=== PATIENT | male | born 1975 | race Caucasian/White ===

== ENCOUNTER → 2023-08-18 | Day surgery (SDC) | payer OTHER ==
[2023-08-10 14:07] LABS: Absolute Eosinophils 0.1 K/uL (0-0.5); Absolute Lymphocytes (CBC) 1.1 K/uL (0.7-4.9); Absolute Monocytes 0.6 K/uL (0.1-1.3); Absolute Neutrophil 3.7 K/uL (1.8-8.0); Basophils % 0.5 % (0-1.3); Eosinophils % 1.6 % (0-4.4); Hematocrit 44.1 % (39.6-49.0); Hemoglobin 14.8 g/dL (13.6-17.9); Lymphocytes % 19.4 % (15.3-44.8); MCH 30.6 pg (27.0-35.0); MCHC 33.5 g/dL (32.0-36.0); MCV 91.5 fL (80-100); MPV 6.2 fL (7.6-11.3); Monocytes % 11.8 % (3.3-12.3); Neutrophils % 66.7 % (41.7-73.7); Nucleated Red Blood Cells % 0.1 % (0-0); Platelets 240 thou/uL (152-406); RBC Red Blood Cell Count 4.82 M/uL (4.33-5.43); Red Cell Distribution Width 13.6 % (12.1-15.2)
[2023-08-10 14:15] LABS: PTT, Activated Partial Thromb 35.8 SECONDS (24.3-36.9); Protime INR 1.09
[2023-08-10 14:24] LABS: Anion Gap 8.8 mEq/L (5.0-15.0); Potassium 3.8 mEq/L (3.5-5.1)
--- NOTE | 2023-08-10 17:24 | RAD REPORT ---
EXAM DESCRIPTION: [facility] Pa And Lat (2 Views)08/10/2023 2:03 pm CLINICAL HISTORY: Pre op pending hernia repair. Hypertension COMPARISON: Chest Pa And Lat (2 Views) dated 04/10/2017; Chest Pa And Lat (2 Views) dated 02/01/2017; Chest Single View dated 08/03/2016 TECHNIQUE: PA and lateral views of the chest. FINDINGS: The lungs are clear apart from streaky right basilar atelectasis. No pneumothorax or effu natanael. The cardiomediastinal contours are unremarkable. IMPRESSION: No acute cardiopulmonary process.
--- NOTE | 2023-08-11 15:44 | EKG ---
Test Date: 2023-08-10 Test Time: 13:54:26 Electrical Laboratory Technician: LIZ MEASUREMENT RESULTS: Intervals: Rate: 68 HI: 156 QRSD: 102 QT: 394 QTc: 418 [place]: P: 19 HI: 156 QRS: 76 T: 51 INTERPRETIVE STATEMENTS: Normal sinus rhythm Normal ECG Compared to ECG 08/03/2016 19:08:30 No significant changes Electronically Signed On 08-11-23 15:41:23 CDT by Roc Staley
[~2023-08-18] MED LIST: FENTANYL CITR 100 MCG/2 ML ONE; LIDOCAINE 2% MPF 5 ML VIAL ONE; MIDAZOLAM HCL 2 MG/2 ML INJ ONE; Mastisol Adhesive Liq ONE; ROCURONIUM 50 MG/5 ML VIAL IV ONE; SUGAMMADEX SODIUM 200 MG/2 ML VIAL IV ONE; propofoL 200 MG/20 ML VIAL IV ONE
[2023-08-18] MEDS: NA CHLORIDE 0.9% 1,000 ML ONE (08:00)
[2023-08-18] MEDS: CEFAZOLIN SODIUM 2 GM/VIAL ONE (09:15)
[2023-08-18] MEDS: BUPIVACAINE 0.5% PF 10 ML VIAL ONE (09:21)
--- NOTE | 2023-08-18 10:18 | P.OP ---
Date of Service: 08/18/23 Preop diagnosis: Incarcerated umbilical hernia Postop diagnosis: Same Procedure performed: Repair of incarcerated umbilical hernia Surgeon: Keron Schwartz MD Insulation And Flooring Assembler: Michelle BROWNING Estimated blood loss: Minimal Specimen: Hernia sac and contents Findings: As above Anesthesia: General Complications: None Drains: None Fluids and blood products: Nonapplicable Disposition: Recovery room Operative note: Patient brought to the OR and placed in the supine position. General anesthesia began. Patient prepped and draped in usual sterile fashion. Marcaine 0.5% infiltrated locally. 15 blade used to make a 1 cm left upper quadrant incision. Subcutaneous tissue divided and bleeding controlled cautery. Fascia identified and divided. #1 Vicryl stay suture placed. Peritoneal cavity entered with sharp and blunt dissection. 12 mm trocar placed into the peritoneal cavity under direct vision. Pneumoperitoneum established. A 5 mm trocar placed in the left lower quadrant under direct vision. Laparoscopy revealed incarcerated umbilical hernia. Omentum present inside the hernia. Omentum removed from the hernia contents. A 3 cm supraumbilical midline incision made. Subcu tissue divided. Hernia sac and contents identified. Hernia sac excised at the fascial edges. In hernia sac sent to pathology. #1 PDS used to close the hernia defect which was approximately 3 cm in diameter. Pneumoperitoneum reestablished. A 10 x 15 cm oval Bard balloon mesh placed in the peritoneal cavity in the standard fashion and deployed. Sorber tack used to secure the mesh to the peritoneal surface under direct vision. The balloon component removed in 1 piece. Complete coverage of the hernia sac with at least 3 cm border on every side accomplished. No evidence of bowel injury or bleeding noted. All trocars removed under direct vision. Stay sutures tied to each other to reapproximate the fascial defect. Subcutaneous wounds irrigated and bleeding controlled cautery. 3-0 chromic used to approximate subcutaneous tissue and close skin. Sterile dressing applied. Patient awakened and taken to recovery room in good general condition. CC:
[2023-08-18] MEDS: HYDROMORPHONE HCL 1 MG/ML INJ ONE ×2 (10:22→10:52)
[2023-08-18 11:11] VITALS: O2SAT 96
[2023-08-18] MEDS: HYDROCODONE/APAP 7.5/325 MG TAB ONE (11:36)
[2023-08-18 12:55] VITALS: TEMP 97.1
[2023-08-18 13:12] VITALS: BP 135/72
== END | disposition home or self-care (01) ==
LOC: OR 07:14
PROVIDERS: ATTEND Surgery
PROC: 0WUF4JZ Supplement Abdominal Wall with Synthetic Substitute, Percutaneous Endoscopic Approach (ICD-10-PCS; principal; 2023-08-18 08:30)
DX: K42.0 Umbilical hernia with obstruction, without gangrene (principal)
CPT/HCPCS: 93005; 85025; 80048; 36415; 85610; 82947 ×2; 88302; 85730; 71046; 49594; J2704 ×2; J2001; J2250; J3010; J1170 ×2; J7030

== ENCOUNTER 2024-03-25 17:10 | Emergency (ER) | payer OTHER ==
--- NOTE | 2024-03-25 17:51 | RAD REPORT ---
Procedure: Chest Pa And Lat (2 Views) HISTORY: Chest pain COMPARISON: July 2023 FINDINGS: 2 cm nodular opacity overlies the right lung base. The left lung appears clear of acute infiltrate. No significant pleural effusion noted. The heart is normal size. IMPRESSION: 2 cm nodular opacity overlies the right lung base. This may represent a pulmonary nodule. CT chest is recommended
[2024-03-25 19:53] LABS: Absolute Eosinophils 0.1 K/uL (0-0.5); Absolute Monocytes 0.5 K/uL (0.1-1.3); Absolute Neutrophil 3.6 K/uL (1.8-8.0); Basophils % 0.4 % (0-1.3); Eosinophils % 1.3 % (0-4.4); Hematocrit 44.1 % (39.6-49.0); Hemoglobin 14.8 g/dL (13.6-17.9); Lymphocytes % 18.6 % (15.3-44.8); MCH 31.8 pg (27.0-35.0); MCHC 33.6 g/dL (32.0-36.0); MCV 94.6 fL (80-100); Neutrophils % 69.7 % (41.7-73.7); Nucleated Red Blood Cells % 0.1 % (0-0); Platelets 225 thou/uL (152-406); RBC Red Blood Cell Count 4.66 M/uL (4.33-5.43); Red Cell Distribution Width 13.2 % (12.1-15.2)
[2024-03-25 20:17] LABS: Albumin 4.2 g/dL (3.4-5.0); Albumin/Globulin Ratio 1.2 (1.1-1.8); Anion Gap 8.1 mEq/L (5.0-15.0); Bilirubin Total 1.1 mg/dL (0.2-1.0); Globulin 3.6 g/dL (2.3-3.5); Potassium 4.1 mEq/L (3.5-5.1); Protein, Total 7.8 g/dL (6.4-8.2); Thyroid Stimulating Hormone 11.5 uIU/mL (0.358-3.740); Troponin High Sensitivity 4.5 pg/mL (<58.9)
--- NOTE | 2024-03-25 20:37 | ER ---
Nurse's Notes [facility] Name: Alex Zelaya Age: 48 yrs Sex: Male : 1975 Arrival Date: 03/25/2024 Time: 17:10 Bed 8 Private MD: Diagnosis: Hypothyroidism, unspecified Presentation: 03/25 17:14 Chief complaint: Intermittent palpitations and SOB x 2 weeks, chest tightness and jaw hb pain today. Coronavirus screen: At this time, the client does not indicate any symptoms associated with coronavirus-19. Ebola Screen: No symptoms or risks identified at this time. Initial Sepsis Screen: Does the patient meet any 2 criteria? No. Patient's initial sepsis screen is negative. Does the patient have a suspected source of infection? No. Patient's initial sepsis screen is negative. Risk Assessment: Do you want to hurt yourself or someone else? Patient reports no desire to harm self or others. Onset of symptoms was March 11, 2024. 17:14 Method Of Arrival: Ambulatory hb 17:14 Acuity: ANNE MARIE 2 hb Historical: - Allergies: 17:19 Bactrim; hb 17:19 Sulfa (Sulfonamide Antibiotics); hb - PMHx: 17:19 borderline hyperlipidemia; Hypothyroidism; joint pain; Pneumonia; Hypertension; hb - PSHx: 17:19 Heart Stent (Hypertension); hb - Immunization history:: Adult Immunizations up to date. - Infectious Disease History:: Denies. - Social history:: Smoking status: Patient denies any tobacco usage or history of. Screenin:48 [facility] ED Fall Risk Assessment (Adult) History of falling in the last 3 months, cm10 including since admission No falls in past 3 months (0 pts) Confusion or Disorientation No (0 pts) Intoxicated or Sedated No (0 pts) Impaired Gait No (0 pts) Mobility Assist Device Used No (0 pt) Altered Elimination No (0 pt) Score/Fall Risk Level 0 - 2 = Low Risk Oriented to surroundings, Maintained a safe environment, Hourly rounding (assess needs \T\ fall precautionary measures) done. Abuse screen: Denies threats or abuse. Denies injuries from another. Nutritional screening: No deficits noted. Tuberculosis screening: No symptoms or risk factors identified. Assessment: 20:48 General: Appears in no apparent distress. comfortable, Behavior is calm, cooperative. cm10 Pain: Complains of pain in chest Pain does not radiate. Neuro: No deficits noted. Level of Consciousness is awake, alert, obeys commands, Oriented to person, place, time, situation, Appropriate for age. Respiratory: No deficits noted. Airway is patent Respiratory effort is even, unlabored, Respiratory pattern is regular, symmetrical. Derm: No deficits noted. Skin is intact, Skin is pink, warm \T\ dry. Musculoskeletal: No deficits noted. Range of motion: intact in all extremities. Vital Signs: 17:14 BP 150 / 89; Pulse 87; Resp 18; Temp 97.9; Pulse Ox 100% ; Weight 99.79 kg; Height 5 hb ft. 11 in. ; Pain 6/10; 20:44 BP 145 / 100; Pulse 91; Resp 18; Pulse Ox 99% on R/A; cm10 17:14 Body Mass Index 30.68 (99.79 kg, 180.34 cm) hb 17:14 Pain Scale: Adult hb ED Course: 17:11 Patient arrived in ED. mr 17:19 Triage completed. hb 17:19 Arm band placed on. hb 17:19 EKG done, by ED staff, reviewed by Leno BELCHER. hb 17:20 Leno Ortiz, DENISEC is PHCP. dr5 17:20 Rae Pires MD is Attending Physician. dr5 17:43 Chest Pa And Lat (2 Views) XRAY In Process Unspecified. EDMS 19:46 CBC with Diff Sent. vk 19:46 NT PRO-BNP Sent. vk 19:46 Troponin HS Sent. vk 19:46 Initial lab(s) drawn, by fl, sent to lab. Inserted saline lock: 20 gauge in right vk antecubital area, using aseptic technique. Blood collected. Flushed with 10 mL NS. 20:47 No provider procedures requiring assistance completed. IV discontinued, intact, cm10 bleeding controlled, No redness/swelling at site. Pressure dressing applied. Patient maintains SpO2 saturation greater than 95% on room air. 20:48 Patient has correct armband on for positive identification. Provided Education on: cm10 Follow-up instructions. Administered Medications: No medications were administered Medication: 20:48 VIS not applicable for this client. cm10 Outcome: 20:37 Discharge ordered by . dr5 20:49 Discharged to home ambulatory, with significant other, cm10 20:49 Condition: good 20:49 Discharge instructions given to patient, Instructed on discharge instructions, follow up and referral plans. Demonstrated understanding of instructions, follow-up care, 20:59 Patient left the ED. cm10 Signatures: Dispatcher [employer] EDMS Helio Yecenia, Reg Reg mr AltafBrittni, eYe Mckinnon RN, RN RN cm10 Carmella Leon Dustin, SUPERVISOR NURSE-C SUPERVISOR NURSE-Cdr5 Corrections: (The following items were deleted from the chart) 17:19 17:19 Allergies: PENICILLINS; hb hb
--- NOTE | 2024-03-25 20:37 | EDPHYS ---
Physician Documentation [facility] Name: Alex Zelaya Age: 48 yrs Sex: Male : 1975 Arrival Date: 03/25/2024 Time: 17:10 Bed 8 Private MD: ED Physician Rae Pires HPI: 03/25 17:22 This 48 yrs old Male presents to ER via Ambulatory with complaints of Chest dr5 Tightness, Shortness Of Breath. 17:22 Onset: The symptoms/episode began/occurred 1 day(s) ago. Patient is a 48-year-old male dr5 with history of hyperlipidemia, hypertension, hypothyroidism, 1 cardiac stent coming in with midsternal chest pain/shortness of breath that is been intermittent for the past 2 weeks that has worsened since this morning. Patient reports that this has happened before in the past and his thyroid was the cause. Patient reports pain radiating up to the jaw. Patient denies nausea, vomiting, diarrhea, or fever. Historical: - Allergies: 17:19 Bactrim; hb 17:19 Sulfa (Sulfonamide Antibiotics); hb - PMHx: 17:19 borderline hyperlipidemia; Hypothyroidism; joint pain; Pneumonia; Hypertension; hb - PSHx: 17:19 Heart Stent (Hypertension); hb - Immunization history:: Adult Immunizations up to date. - Infectious Disease History:: Denies. - Social history:: Smoking status: Patient denies any tobacco usage or history of. ROS: 17:22 Constitutional: as per hpi dr5 Exam: 17:22 Constitutional: This is a well developed, well nourished patient who is awake, alert, dr5 and in no acute distress. Head/Face: Normocephalic, atraumatic. Eyes: Pupils equal round and reactive to light, extra-ocular motions intact. Lids and lashes normal. Conjunctiva and sclera are non-icteric and not injected. Cornea within normal limits. Periorbital areas with no swelling, redness, or edema. Neck: Trachea midline, no thyromegaly or masses palpated, and no cervical lymphadenopathy. Supple, full range of motion without nuchal rigidity, or vertebral point tenderness. No Meningismus. Chest/axilla: Normal chest wall appearance and motion. Nontender with no deformity. No lesions are appreciated. Cardiovascular: Regular rate and rhythm with a normal S1 and S2. Normal PMI, no JVD. No pulse deficits. Respiratory: Lungs have equal breath sounds bilaterally, clear to auscultation. No rales, rhonchi or wheezes noted. No increased work of breathing, no retractions or nasal flaring. Back: No spinal tenderness. No costovertebral tenderness. Full range of motion. Skin: Warm, dry with normal turgor. Normal color with no rashes, no lesions, and no evidence of cellulitis. MS/ Extremity: Pulses equal, no cyanosis. Neurovascular intact. Full, normal range of motion. Neuro: Awake and alert, GCS 15, oriented to person, place, time, and situation. Cranial nerves II-XII grossly intact. Motor strength 5/5 in all extremities. Sensory grossly intact. Cerebellar exam normal. Normal gait. Vital Signs: 17:14 BP 150 / 89; Pulse 87; Resp 18; Temp 97.9; Pulse Ox 100% ; Weight 99.79 kg; Height 5 hb ft. 11 in. ; Pain 6/10; 20:44 BP 145 / 100; Pulse 91; Resp 18; Pulse Ox 99% on R/A; cm10 17:14 Body Mass Index 30.68 (99.79 kg, 180.34 cm) hb 17:14 Pain Scale: Adult hb MDM: 17:32 Medical Screening Exam initiated dr5 19:24 Awaiting: labs results. dr5 20:11 Awaiting: labs results. dr5 20:48 Differential diagnosis: viral Infection, NSTEMI, Hypothyroidism. Data reviewed: vital dr5 signs, nurses notes, lab test result(s). Historians other than the Patient: Spouse/Significant Other: . Care significantly affected by the following chronic conditions: Hypothyroidism, hypertension, hyperlipidemia. Care significantly affected by the following Social Determinants of Health: Poor access to healthcare and/or lack of insurance, Poor access to transportation, Problems related to employment. 20:53 ED course: Had a long discussion with patient for nodule on chest x-ray and to have dr5 follow-up with CT scan primary care doctor. Labs revealed TSH of 11.5. Patient reports he has his medication (levothyroxine) at home and will take it as soon as he gets home. at bedside and is agreeable to plan and will make sure he takes medication at home. Gave the patient week off of work to make appointment tomorrow to follow-up with primary care doctor to have labs drawn and thyroid medication adjusted. Patient denies symptoms at this time. Printed all lab work, chest x-ray results, and I made a copy of EKG to take with him. All results were printed and given to . All questions answered.. 03/25 17:21 Order name: CBC with Diff; Complete Time: 20:33 dr5 03/25 17:21 Order name: NT PRO-BNP; Complete Time: 20:33 dr5 03/25 17:21 Order name: Troponin HS; Complete Time: 20:33 dr5 03/25 17:21 Order name: CMP; Complete Time: 20:33 dr5 03/25 17:21 Order name: TSH; Complete Time: 20:33 dr5 03/25 20:21 Order name: T4 Free; Complete Time: 20:33 EDMS 03/25 17:21 Order name: Chest Pa And Lat (2 Views) XRAY; Complete Time: 18:01 dr5 03/25 17:21 Order name: EKG; Complete Time: 17:22 dr5 03/25 17:21 Order name: EKG - Nurse/Tech; Complete Time: 19:38 dr5 03/25 17:21 Order name: IV Saline Lock; Complete Time: 19:46 dr5 03/25 17:21 Order name: Labs collected and sent; Complete Time: 19:46 dr5 EC:17 Rate is 86 beats/min. Rhythm is regular. QRS [place] is Normal. IN interval is normal at dr5 148 msec. QRS interval is normal at 90 msec. QT interval is normal at 354 msec. Administered Medications: No medications were administered Disposition: 20:34 Co-signature as Attending Physician, Rae Pires MD I reviewed the patient's care gb1 provided by the Advanced Practice Provider and agree with the diagnosis and treatment plan. Disposition Summary: 03/25/24 20:37 Discharge Ordered Notes: Location: Home dr5 Condition: Stable dr5 Diagnosis - Hypothyroidism, unspecified dr5 Followup: dr5 - With: Emergency Department - When: As needed - Reason: Worsening of condition Followup: dr5 - With: Private Physician - When: 1 - 2 days - Reason: Recheck today's complaints, Continuance of care, Re-evaluation by your physician Discharge Instructions: - Discharge Summary Sheet dr5 - Hypothyroidism dr5 Forms: - Work release form dr5 - Medication Reconciliation Form dr5 - Patient Portal Instructions dr5 - Leadership Thank You Letter dr5 Signatures: Dispatcher [employer] Brittni Martinez, MALAIKA RN Rae Bravo MD MD gb1 Leno Ortiz, GAS OPERATIONS ANALYST-C GAS OPERATIONS ANALYST-Cdr5 Corrections: (The following items were deleted from the chart) 17:19 17:19 Allergies: PENICILLINS; hb hb
[2024-03-25 21:21] VITALS: TEMP 97.9
[2024-03-25 21:23] VITALS: BP 145/100; O2SAT 99
--- NOTE | 2024-04-01 11:07 | EKG ---
Test Date: 2024-03-25 Test Time: 17:17:01 Clinic Supervisor: HB MEASUREMENT RESULTS: Intervals: Rate: 86 [place]: 148 QRSD: 90 QT: 354 QTc: 423 [place]: P: 48 [place]: 148 QRS: 97 T: 21 INTERPRETIVE STATEMENTS: Normal sinus rhythm Rightward axis Borderline ECG Compared to ECG 10/19/2023 01:50:18 T-wave abnormality no longer present Electronically Signed On 04-01-24 10:58:53 CLOTH NAPPING SUPERVISOR by Roc Staley
== END 2024-03-25 20:59 | disposition home or self-care (01) ==
LOC: ER 17:10
DX: R07.9 Chest pain, unspecified (principal); R06.02 Shortness of breath; E03.9 Hypothyroidism, unspecified; E78.5 Hyperlipidemia, unspecified; I10 Essential (primary) hypertension; Z95.5 Presence of coronary angioplasty implant and graft; Z88.1 Allergy status to other antibiotic agents; Z88.2 Allergy status to sulfonamides
CPT/HCPCS: 36415; 71046; 80053; 83880; 84439; 84443; 84484; 85025; 93005; 99284